=== PATIENT | male | born 1940 | race Caucasian/White ===

== ENCOUNTER → 2016-08-31 | Outpatient (CLI) | payer OTHER | LOC: BRMIMAGING 14:12 | PROVIDERS: ATTEND Family Medicine | DX: N50.812 Left testicular pain (principal); N50.9 Disorder of male genital organs, unspecified | CPT/HCPCS: 76870-PO ==

== ENCOUNTER → 2016-11-26 | Outpatient (CLI) | payer OTHER | LOC: BRMIMAGING 11:11 | PROVIDERS: ATTEND Family Medicine | DX: N50.3 Cyst of epididymis (principal); N45.1 Epididymitis | CPT/HCPCS: 76870-PO ==